=== PATIENT | female | born 1970 | race Two or more races ===

== ENCOUNTER 2017-10-06 06:15 | Day surgery (SDC) | payer OTHER ==
[~2017-10-06 06:15] MED LIST: BENICAR5 MG
== END 2017-10-06 10:50 | disposition home or self-care (01) ==
LOC: AMB-ENDOS 06:15
DX: D12.8 Benign neoplasm of rectum (principal); D13.0 Benign neoplasm of esophagus; D13.2 Benign neoplasm of duodenum; K63.5 Polyp of colon; K31.7 Polyp of stomach and duodenum; K64.4 Residual hemorrhoidal skin tags

== ENCOUNTER 2020-11-07 11:27 | Emergency (ER) | payer OTHER ==
[~2020-11-07] VITALS: Ht 157.5 cm; Wt 68.0 kg
[~2020-11-07 11:27] MED LIST changes: +KETO10TA2 PO; +POLY119PG PO; +RECTICARE30 GM TOP; +SINGULAIR10 MG PO; +ULTRAM50 MG PO
[2020-11-07] MEDS ORDERED: BYSTOLIC5 MG (12:01)
[2020-11-07] MEDS ORDERED: WELLBUTRIN XL150 M1 (12:01)
[2020-11-07] MEDS ORDERED: RESTORIL30 MG (12:02)
[2020-11-07] MEDS ORDERED: PEPCID AC20 MG (12:02)
[2020-11-07] MEDS ORDERED: PROTONIX40 MG (12:02)
[2020-11-07] MEDS ORDERED: CLONAZEPAM0.5 M1 (12:02)
[2020-11-07] MEDS ORDERED: CARAFATE1 GM PO (17:20)
[2020-11-07] MEDS ORDERED: MAALOX ADVANCE355 ML PO (17:20)
[2020-11-07] MEDS ORDERED: CHLORDIAZEPOXI1 EACH PO (17:20)
== END 2020-11-07 18:01 ==
LOC: ER 11:27
DX: K21.9 Gastro-esophageal reflux disease without esophagitis (principal); F41.9 Anxiety disorder, unspecified; K20.80 Other esophagitis without bleeding

== ENCOUNTER 2024-05-28 05:41 | Day surgery (SDC) | payer OTHER ==
[~2024-05-28] VITALS: Ht 157.5 cm; Wt 68.0 kg
[~2024-05-28 05:41] MED LIST changes: +BYSTOLIC5 MG; +CARAFATE1 GM PO; +CHLORDIAZEPOXI1 EACH PO; +CLONAZEPAM0.5 M1; +MAALOX ADVANCE355 ML PO; +PEPCID AC20 MG; +PROTONIX40 MG; +RESTORIL30 MG; +WELLBUTRIN XL150 M1
[2024-05-28] MEDS ORDERED: RINGERS SOLUTION,LACTATED 1,000 ML IV ONE (07:15)
--- NOTE | 2024-05-28 07:39 | NUR ---
SE ORIENTA A PACIENTE SOBRE TRATAMIENTO MEDICO LA CUAL INDICA ENTENDER Y ACEPTAR. SE COLECTAN MUESTRAS DE LABORATORIO BAJO MEDIDAS ASEPTICAS Y SE REALIZA VENOPUNCION LA CUAL SE ENCUENTRA PATENTE SONAL DE EDEMA Y ERITEMA. SE ADMINISTRA MEDICAMENTOS ABIODUN ORDEN MEDICA.
[2024-05-28] MEDS ORDERED: CEFTRIAXONE SODIUM 1,000 MG VIAL IV STA (07:52)
[2024-05-28] MEDS ORDERED: CEFTRIAXONE SODIUM 1,000 MG VIAL ONE (07:59)
[2024-05-28 08:16] LABS: HEMATOCRIT 38.8 % (36.0-45.00); HEMOGLOBIN 12.9 g/dL (12.0-15.00); MEAN CELL VOLUME 91.2 fL (80.00-100.00); MEAN CORPUSCULAR HEMOGLOBIN 30.3 pg (27.00-32.0); MEAN CORPUSCULAR HGB CONC 33.2 g/dl (32.0-36.0); PLATELET COUNT 215 K/uL (150-450); RED BLOOD COUNT 4.25 M/uL (4.00-6.00); RED CELL DISTRIBUTION WIDTH 13.4 % (11.5-14.5)
[2024-05-28 08:47] LABS: ALBUMIN 3.7 gm/dL (3.4-5.0); BILIRUBIN TOTAL 0.42 mg/dL (0.3-1.2); BILIRUBIN,CONJUGATED 0.11 mg/dL (0.0-0.2); BILIRUBIN,UNCONJUGATED 0.31 mg/dL (0.0-0.6); CALCIUM 8.9 mg/dL (8.5-10.1); CREATININE SERUM 0.73 mg/dL (0.55-1.02); GFR 83.72; GLOBULINA 3.5 G/DL (2.4-3.5); POTASSIUM 4.02 mEq/L (3.5-5.1); TOTAL PROTEIN 7.2 gm/dL (6.4-8.2)
[2024-05-28] MEDS ORDERED: RINGERS SOLUTION,LACTATED 1,000 ML IV SCH (09:15)
[2024-05-28 09:57] LABS: PH,URINE 6.5 (5.0-8.0); URINE APPEARANCE Cloudy; URINE BILIRRUBIN Negative (NEGATIVE); URINE BLOOD Negative; URINE COLOR Yellow; URINE GLUCOSE Negative (NEGATIVE); URINE KETONE Negative (NEGATIVE); URINE LEUKOCYTE Negative; URINE NITRATE Negative; URINE PROTEIN Negative (NEGATIVE); URINE UROBILINOGEN 0.2 E.U./dl
[2024-05-28 10:00] LABS: URINE BACTERIA 1293.6 uL (0.0-1933); URINE EPITHELIAL CELLS 65.2 uL (0.0-38.8); URINE RBC 103.9 uL (0.0-20.8); URINE WBC 27.2 uL (0.0-23.2)
[2024-05-28 10:04] LABS: INR 1.05; PARTIAL THROMBOPLASTIN TIME 29.3 SECONDS (22.0-34.0); PROTHROMBIN TIME 11.4 SECONDS (9.0-11.5)
[2024-05-28 10:21] LABS: URINE CAST 0.58 uL (0.0-1.40)
[2024-05-28] MEDS ORDERED: BUPIVACAINE HCL/MPF 0.5% 30ML VIAL ONE (12:48)
[2024-05-28] MEDS ORDERED: LIDOCAINE HCL 1%/EPINEPHRINE 20ML VIAL IJ ONE (12:48)
[2024-05-28] MEDS ORDERED: METRONIDAZOLE/SODIUM CHLORIDE 500 MG/100 ML PIGGYBACK IV ONE (12:48)
[2024-05-28] MEDS ORDERED: CEFTRIAXONE SODIUM 2,000 MG VIAL ONE (12:48)
[2024-05-28] MEDS ORDERED: SUGAMMADEX SODIUM 200 MG/2 ML VIAL IV ONE ×2 (14:21→14:45)
[2024-05-28] MEDS ORDERED: ZOFRAN8 MG PO (14:55)
[2024-05-28] MEDS ORDERED: PROTONIX40 MG PO (14:55)
[2024-05-28] MEDS ORDERED: TRAMADOL HCL50 MG PO (14:55)
[2024-05-28] MEDS ORDERED: MORPHINE SULFATE 4 MG/ML VIAL IV ONE (15:25)
[2024-05-28 16:25] VITALS: BP 148/72; O2SAT 100
== END 2024-05-28 17:30 | disposition home or self-care (01) ==
LOC: CIR.AMB 05:41 → ER 05:41 → CIR.AMB 05:41 → ER 11:07 → O/R 11:07 → SEC-K 11:07 → O/R 14:07 → SEC-K 14:07 → CIR.AMB 17:30 → O/R 17:30 → ER 17:30
PROVIDERS: ATTEND General Practice
DX: K81.1 Chronic cholecystitis (principal)